=== PATIENT | male | born 1965 | race Caucasian/White ===

== ENCOUNTER → 2020-07-10 09:30 | Outpatient (BNVA) | payer OTHER, SELFPAY | PROVIDERS: Visit Provider Surgery | DX: Z01.812 Encounter for preprocedural laboratory examination (principal); Z20.822 Contact with and (suspected) exposure to COVID-19 | CPT/HCPCS: 87635 ==

== ENCOUNTER 2020-07-13 06:58 | Day surgery (SDC) | payer OTHER, SELFPAY ==
[2020-07-10 14:34] VITALS: BMI 36.3
--- NOTE | 2020-07-13 07:10 | ANES.PREANE2 ---
Pre-Anesthetic Assessment Pre-Anesthetic Assessment: Height/Weight: Height 1.8 m Weight 118.388 kg Preop Diagnosis: Screening Proposed Procedure: Operation Date: 07/13/20 08:15 Proposed Procedures p [id number] z12.11(Not Applicable) - Donnell Pinedo MD Familial anesthetic complications: No history ofanesthesia, no family trouble Was Beta Chidi taken within 24 hours: Yes Was Clonidine taken within 24 hours: N/A Last intake: NPO > 8 hrs Social: Social History: No alcohol and No tobacco Exam: Pre-Anes Outpt Exam: alert, oriented x 3, clear to auscultation bilaterally and regular rate & rhythm Airway: Cervical ROM: WNL MP: 3 Dentition: Full CV/HEM: CV/HEM: HTN Metabolic: Metabolic: DM Anesthetic Plan: ASA status: 3 Anesthesia: MAC Risk of > 500 ml blood loss (7ml/kg in children): No PFSH Anesthesia PFSH: Medical History Benign essential HTN Diabetes mellitus with hyperglycemia, without long-term current use of insulin Gout Surgical History No history of previous surgery Family History Other Diabetes Hypertension Denies family history of Dementia Anesthesia complication Bleeding disorder Lung disease Cancer Stroke Social History Smoking and tobacco status: never smoked Second hand smoke exposure: No Smoking risk assessment/counseling performed?: No Alcohol intake: former Desire information about alcohol rehabilitation?: No Counseling given: No Desire information about substance/drug rehabilitation?: No Counseling given: No Adopted: No Caregiver/support person: No Lives independently: Yes Household members: spouse Housing: Manufactured/Mobile home Marital status: Number of children: 2 service: No Current occupational status: employed Pets and animals: No Current gender identity: Male Data Anesthesia Cardiac Studies: No Data to Display
--- NOTE | 2020-07-13 07:12 | W.PM.OPSUD ---
Surgery/Procedure H&P Update DATE OF PROCEDURE: July 13, 2020 DATE H&P PERFORMED: 07/10/20 H&P UPDATE INFORMATION: I have reviewed H&P completed within last 30 days, I have examined patient prior to procedure and No changes to prior documentation PLANNED PROCEDURE: Operation Date: 07/13/20 08:15 Proposed Procedures p [id number] z12.11(Not Applicable) - Donnell Pinedo MD
[2020-07-13 08:19] VITALS: BP 152/99; PULSE 73; RESP 18; TEMP 36.3; O2SAT 96
[2020-07-13] MEDS: sodium chloride 0.9% 1,000 ML 30 ML IV (08:23)
[2020-07-13 08:52] VITALS: BP 109/82; PULSE 74; RESP 16; TEMP 36.1; O2SAT 93
[2020-07-13 09:03] VITALS: BP 137/88; PULSE 70; RESP 16; O2SAT 95
--- NOTE | 2020-07-13 15:42 | ANE.PACU2 ---
Inpatient post-anesthesia follow up: Airway intact: Yes Vital signs: Temperature 97 F Pulse Rate 70 Respiratory Rate 16 Blood Pressure 137/88 Pulse Oximetry 95 Oxygen Delivery Me thod Room Air Oxygen Flow Rate Fraction of Inspir ed Oxygen Hydration adequate: Yes Nausea and vomiting: No Pain level: 1 Mental status: Baseline
== END 2020-07-13 09:30 | disposition home or self-care (01) ==
PROVIDERS: Visit Provider Surgery
PROC: 0DJD8ZZ Inspection of Lower Intestinal Tract, Via Natural or Artificial Opening Endoscopic (ICD-10-PCS; CPT 45378; principal; 2020-07-13 08:15)
DX: Z12.11 Encounter for screening for malignant neoplasm of colon (principal); D12.4 Benign neoplasm of descending colon; K57.30 Diverticulosis of large intestine without perforation or abscess without bleeding; K64.8 Other hemorrhoids; I10 Essential (primary) hypertension; E11.9 Type 2 diabetes mellitus without complications; Z79.82 Long term (current) use of aspirin
CPT/HCPCS: 45380; 88305; 96360; J7030

== ENCOUNTER 2020-07-16 11:32 | Day surgery (SDC) | payer OTHER, SELFPAY ==
[2020-07-15 14:13] VITALS: BMI 36.3
[2020-07-16 11:50] VITALS: BP 139/94; PULSE 71; RESP 18; TEMP 36.7; O2SAT 96
--- NOTE | 2020-07-16 12:13 | W.PM.OPSUD ---
Surgery/Procedure H&P Update DATE OF PROCEDURE: July 16, 2020 DATE H&P PERFORMED: 07/10/20 H&P UPDATE INFORMATION: I have reviewed H&P completed within last 30 days, I have examined patient prior to procedure and No changes to prior documentation PREOP DIAGNOSIS: Umbilical hernia PLANNED PROCEDURE: Operation Date: 07/16/20 13:10 Proposed Procedures p Umbilical Hernia Repair(Not Applicable) - Donnell Pinedo MD
--- NOTE | 2020-07-16 12:28 | ANES.PREANE2 ---
Pre-Anesthetic Assessment Pre-Anesthetic Assessment: Height/Weight: Height 1.8 m Weight 118.388 kg Temp Pulse Resp BP Pulse Ox 98.0 F 71 18 139/94 96 07/16/20 11:50 07/16/20 11:50 07/16/20 11:50 07/16/20 11:50 07/16/20 11:50 Preop Diagnosis: Rectal cancer Proposed Procedure: Operation Date: 07/16/20 13:10 Proposed Procedures p Umbilical Hernia Repair(Not Applicable) - Donnell Pinedo MD Familial anesthetic complications: None Was Beta Chidi taken within 24 hours: N/A Was Clonidine taken within 24 hours: N/A Last intake: Intake Last Liquid Date 07/15/20 Last Liquid Time 21:30 Last Solid Date 07/15/20 Last Solid Time 21:30 Social: Social History: No alcohol and No tobacco Exam: Pre-Anes Outpt Exam: alert, oriented x 3, clear to auscultation bilaterally and regular rate & rhythm Airway: Cervical ROM: WNL MP: 3 Dentition: Full CV/HEM: CV/HEM: HTN Metabolic: Metabolic: DM Anesthetic Plan: ASA status: 3 Anesthesia: General Risk of > 500 ml blood loss (7ml/kg in children): No PFSH Anesthesia PFSH: Medical History Benign essential HTN Diabetes mellitus with hyperglycemia, without long-term current use of insulin Gout Surgical History (Updated 07/13/20 @ 08:51 by Donnell Pinedo MD) Status post colonoscopy (07/13/20) Family History Other Diabetes Hypertension Denies family history of Dementia Anesthesia complication Bleeding disorder Lung disease Cancer Stroke Social History Smoking and tobacco status: never smoked Second hand smoke exposure: No Smoking risk assessment/counseling performed?: No Alcohol intake: former Desire information about alcohol rehabilitation?: No Counseling given: No Desire information about substance/drug rehabilitation?: No Counseling given: No Adopted: No Caregiver/support person: No Lives independently: Yes Household members: spouse Housing: Manufactured/Mobile home Marital status: Number of children: 2 service: No Current occupational status: employed Pets and animals: No Current gender identity: Male Data Anesthesia Cardiac Studies: No Data to Display
[2020-07-16] MEDS: sodium chloride 0.9% 1,000 ML 30 ML IV (12:40)
[2020-07-16 14:11] VITALS: BP 139/105; PULSE 82; RESP 12; TEMP 36.1; O2SAT 91
[2020-07-16 14:15] VITALS: BP 146/116; PULSE 74; RESP 19; O2SAT 91
[2020-07-16 14:20] VITALS: BP 119/84; PULSE 75; RESP 16; O2SAT 94
[2020-07-16 14:25] VITALS: BP 122/85; PULSE 76; RESP 16; TEMP 36.4; O2SAT 94
[2020-07-16] MEDS: HYDROcodone-acetaminophen 5-325 mg Tablet 1 TAB PO (14:43)
--- NOTE | 2020-07-16 15:36 | P.OP_ITS ---
Operative Report Date of procedure: July 16, 2020 Pre-op Diagnosis: Symptomatic incarcerated umbilical hernia Post-op Diagnosis: 2 cm incarcerated umbilical hernia containing omentum Procedure Done: Open primary repair of umbilical hernia Pathology: none sent Surgeon: Donnell Pinedo Anesthesia: General Condition: stable Disposition: PACU Procedure: The patient was taken to the operating room and intubated under general anesthesia after IV antibiotic had been administered. The abdomen was prepped and draped in a sterile manner. A 2 cm infraumbilical curvilinear incision was made using a 15 blade, a hernial sac dissected out using electrocau kari and dissection with hemostats. The hernial sac was opened and omentum was reduced into the peritoneal cavity. Interrupted sutures using 0 Vicryl was used to close the hernial defect without any tension. The subcutaneous tissue was approximated using 3-0 Vicryl and skin was closed using running subcuticular 4-0 Monocryl sutures. Dermabond was then applied and 10 mL of 0.5% Marcaine was in filtrated around the incision. A 2 x 2 gauze was then placed within the umbilicus and sterile dressings are applied. The patient was stable throughout the procedure, extubated and transferred to recovery room.
--- NOTE | 2020-07-16 18:03 | ANE.PACU2 ---
Inpatient post-anesthesia follow up: Airway intact: Yes Vital signs: Temperature 97.6 F Pulse Rate 76 Respiratory Rate 16 Blood Pressure 122/85 Pulse Oximetry 94 Oxygen Delivery Me thod Room Air Oxygen Flow Rate 8 Fraction of Inspir ed Oxygen Hydration adequate: Yes Nausea and vomiting: No Pain level: 2 Mental status: Baseline
== END 2020-07-16 14:58 | disposition home or self-care (01) ==
PROVIDERS: Visit Provider Surgery
PROC: (CPT 49587; principal; 2020-07-16 13:00)
DX: K42.0 Umbilical hernia with obstruction, without gangrene (principal); I10 Essential (primary) hypertension; E11.9 Type 2 diabetes mellitus without complications; E11.65 Type 2 diabetes mellitus with hyperglycemia; Z79.82 Long term (current) use of aspirin
CPT/HCPCS: 49587; 96365; J0690; J1100; J2250; J2405; J2704; J2710; J3010; J3490; J7030

== ENCOUNTER → 2020-10-26 11:01 | Outpatient (BNVA) | payer OTHER, SELFPAY | PROVIDERS: PCP Nurse Practitioner; Visit Provider Nurse Practitioner | DX: Z20.822 Contact with and (suspected) exposure to COVID-19 (principal); E11.65 Type 2 diabetes mellitus with hyperglycemia; I10 Essential (primary) hypertension | CPT/HCPCS: 80053; 80061; 83036; 87635 ==

== ENCOUNTER → 2021-01-20 08:22 | Outpatient (BNVA) | payer OTHER, SELFPAY | PROVIDERS: PCP Nurse Practitioner; Visit Provider Nurse Practitioner | DX: E11.65 Type 2 diabetes mellitus with hyperglycemia (principal); I10 Essential (primary) hypertension | CPT/HCPCS: 80053; 80061; 82043; 83036 ==

== ENCOUNTER → 2021-04-27 08:43 | Outpatient (BNVA) | payer OTHER, SELFPAY | PROVIDERS: PCP Nurse Practitioner; Visit Provider Nurse Practitioner | DX: E11.65 Type 2 diabetes mellitus with hyperglycemia (principal); M10.9 Gout, unspecified; I10 Essential (primary) hypertension | CPT/HCPCS: 80053; 80061; 81000; 82043; 83036; 84550 ==

== ENCOUNTER → 2021-07-20 08:52 | Outpatient (BNVA) | payer OTHER, SELFPAY | PROVIDERS: PCP Nurse Practitioner; Visit Provider Nurse Practitioner | DX: M10.9 Gout, unspecified (principal); E11.65 Type 2 diabetes mellitus with hyperglycemia; I10 Essential (primary) hypertension; R22.2 Localized swelling, mass and lump, trunk | CPT/HCPCS: 80053; 81000; 83036; 85025 ==

== ENCOUNTER 2021-10-11 06:42 | Outpatient (CLI) | payer OTHER, SELFPAY ==
--- NOTE | 2021-10-11 07:00 | US_ITS ---
WS: [id number] ULTRASOUND SOFT TISSUES superior RIGHT back. HISTORY: R22.2 - Localized swelling, mass and lump, trunk COMPARISON: None available. TECHNIQUE: 2-D and color Doppler imaging is submitted. There is a homogeneous ovoid hypoechoic mass along the RIGHT upper back in the area of interest measu ring 6.4 x 6.6 x 2.3 cm. No increased vascularity. This is a homogeneous mass with no adjacent fluid interspersed between the soft tissues of the back. US/US soft tissue/extremity [id number] IMPRESSION: Hypoechoic mass corresponds to the palpable area in the RIGHT back. Most likely this is a benign lipoma based upon its imaging characteristics.
== END 2021-10-11 06:43 | disposition home or self-care (01) ==
PROVIDERS: PCP Nurse Practitioner; Visit Provider Nurse Practitioner
DX: R22.2 Localized swelling, mass and lump, trunk (principal)
CPT/HCPCS: 76882

== ENCOUNTER → 2021-10-21 08:09 | Outpatient (BNVA) | payer OTHER, SELFPAY | PROVIDERS: PCP Nurse Practitioner; Visit Provider Nurse Practitioner | DX: E11.65 Type 2 diabetes mellitus with hyperglycemia (principal); I10 Essential (primary) hypertension | CPT/HCPCS: 80053; 80061; 83036; 85025 ==

== ENCOUNTER 2021-11-29 05:54 | Day surgery (SDC) | payer OTHER, SELFPAY ==
[2021-11-26 13:37] VITALS: BMI 34.8
[2021-11-29] VITALS (7 sets, daily range): BP systolic 116–132; BP diastolic 75–90; PULSE 62–75; RESP 16–18; TEMP 36.1–36.7; O2SAT 92–97
[2021-11-29 06:31] LABS: Glucose Point of Care 133 mg/dL (70-110)
[2021-11-29] MEDS: sodium chloride 0.9% 1,000 ML 30 ML IV (06:35)
--- NOTE | 2021-11-29 06:54 | W.PM.OPSUD ---
Surgery/Procedure H&P Update DATE OF PROCEDURE: November 29, 2021 DATE H&P PERFORMED: 11/09/21 PREOP DIAGNOSIS: subcutaneous mass of back PLANNED PROCEDURE: Operation Date: 11/29/21 07:00 Proposed Procedures p Excision of subq back mass 53027,R22.2(Not Applicable) - Vladimir Izaguirre DO
[2021-11-29] MEDS: ceFAZolin 2,000 MG in sodium chloride 0.9% (plus) 50 ML 100 MG IV (06:59)
[2021-11-29] MEDS: neomycin-poly-bacitracin oint 28 gm 1 APPLIC TOPICAL (07:38)
--- NOTE | 2021-11-29 07:42 | PM.OP ---
Operative Report Date of procedure: November 29, 2021 Pre-op diagnosis: Preop Diagnosis subcutaneous mass of back Post-op diagnosis: same Procedure done: Excision of subcutaneous mass of back Specimens removed/disposition: Subcutaneous mass of back Surgeon: Dr. Vladimir Izaguirre DO Anesthesia: Other (LMA) Estimated blood loss (mL): 5 Complications: None apparent Brief History: This is a pleasant 56-year-old gentleman who came in with an enlarging and painful subcutaneous mass of his back. Excision was indicated. Procedure: The area was inspected prepped and draped in the usual sterile fashion. 2% lidocaine with epinephrine was used to anesthetize the area over the subcutaneous mass of the back. A 15 blade scalpel then used to make a 5 cm transverse incision on the back. Bovie cautery was used to dissect down through the subcutaneous tissues and fascia to a lobulated yellow mass consistent with a lipoma. Alveolar tissue was broken and cauterized. A 7 cm lobulated mass was removed and passed off. Hemostasis was achieved with electrocautery. Dermis was approximated with 3-0 Vicryl in an interrupted fashion. Skin was closed with 3-0 nylon in a vertical mattress and simple running fashioN. Sterile dressing was applied. Patient tolerated the procedure well.
--- NOTE | 2021-11-29 07:50 | ANES.PREANE2 ---
Pre-Anesthetic Assessment Height/Weight: Height 1.8 m Weight 113.398 kg Temp Pulse Resp BP Pulse Ox O2 Del Method 97.0 F L 62 18 132/90 97 11/29/21 06:12 11/29/21 06:12 11/29/21 06:12 11/29/21 06:12 11/29/21 06:12 11/29/21 06:21 Preop Diagnosis: subcutaneous mass of back Operation Date: 11/29/21 07:00 Proposed Procedures p Excision of subq back mass 06152,R22.2(Not Applicable) - Vladimir Izaguirre DO Familial anesthetic complications: none Was Beta Chidi taken within 24 hours: Yes Was Clonidine taken within 24 hours: N/A Last intake: Intake Last Liquid Date 11/28/21 Last Liquid Time 20:00 Last Solid Date 11/28/21 Last Solid Time 20:00 Social No alcohol and No tobacco Exam alert, oriented x 3, clear to auscultation bilaterally and regular rate & rhythm Airway Submandibular: within normal limits Cervical ROM: within normal limits Mallampati: Class II Dentition: full CV/HEM Hypertension Metabolic Diabetes Mellitus and Morbid Obesity Anesthetic Plan ASA status: 2 Anesthesia: General Medications/Allergies Home Medications Medication Instructions Recorded Confirmed Last Taken Type aspirin 81 mg tablet,delayed 81 mg PO DAILY 06/30/20 11/29/21 11/26/21 History release (Adult Low Dose Aspirin) plant stanol ness 450 mg tablet 450 mg PO DAILY 07/10/20 11/29/21 11/27/21 History (Cholest Off) allopurinol 300 mg tablet 300 mg PO DAILY #30 tabs 10/20/21 11/29/21 11/28/21 Rx dapagliflozin 10 mg tablet 10 mg PO QAM #30 tabs 10/20/21 11/29/21 11/27/21 Rx (Farxiga) liraglutide 0.6 mg/0.1 mL (18 mg/3 1.2 mg (0.2 mL) SUBCUT Q24H #9 mL 10/20/21 11/29/21 11/27/21 Rx mL) subcutaneous pen injector (Victoza 3-Jamir) metoprolol succinate 25 mg 25 mg PO DAILY #30 tabs 10/20/21 11/29/21 11/29/21 05:00 Rx tablet,extended release 24 hr pen needle, diabetic 33 gauge x #100 ea 10/20/21 11/09/21 Unknown Rx 32 valsartan 160 mg tablet 160 mg PO DAILY #30 tabs 10/20/21 11/29/21 11/27/21 Rx naltrexone 8 mg-bupropion 90 mg 2 tab PO Q12H #120 tabs 11/02/21 11/29/21 11/27/21 Rx tablet,extended release (Contrave) rosuvastatin 20 mg tablet (Crestor) 20 mg PO DAILY #30 tabs 11/02/21 11/29/21 11/27/21 Rx hydrocodone 7.5 mg-acetaminophen 1 tab PO TID PRN pain #10 tabs 11/29/21 Unknown Rx 325 mg tablet Allergies Allergy/AdvReac Type Severity Reaction Status Date / Time metformin AdvReac Severe ADR-Diarrhe Verified 11/09/21 09:07 a Current Medications Generic Name Dose Route Start Last Admin Trade Name Freq PRN Reason Stop Dose Admin Sodium Chloride 1,000 mls @ 30 mls/hr 11/29/21 06:00 11/29/21 06:35 Sodium Chloride 0.9% IV 11/30/21 05:59 30 mls/hr .Q24H HERON Administration PFSH Anesthesia Medical History Benign essential HTN Diabetes mellitus with hyperglycemia, without long-term current use of insulin Gout Hyperlipidemia, mixed Obesity (BMI 30-39.9) Surgical History History of umbilical hernia repair (07/16/20) Status post colonoscopy (07/13/20) Family History Other Diabetes Hypertension Denies family history of Dementia Anesthesia complication Bleeding disorder Lung disease Cancer Stroke Social History Smoking and tobacco status: never smoked Second hand smoke exposure: No Smoking risk assessment/counseling performed?: No Alcohol intake: former Desire information about alcohol rehabilitation?: No Counseling given: No Desire information about substance/drug rehabilitation?: No Counseling given: No Adopted: No Caregiver/support person: No Lives independently: Yes Household members: spouse Housing: Manufactured/Mobile home Marital status: Number of children: 2 service: No Current occupational status: employed Pets and animals: No Current gender identity: Male Data Anesthesia Cardiac Studies: No Data to Display
--- NOTE | 2021-11-29 15:53 | ANE.PACU2 ---
Inpatient post-anesthesia follow up: Airway intact: Yes Vital signs: Temperature 97.4 F Pulse Rate 72 Respiratory Rate 18 Blood Pressure 122/79 Pulse Oximetry 93 Oxygen Delivery Me thod Room Air Oxygen Flow Rate 6 Fraction of Inspir ed Oxygen Hydration adequate: Yes Nausea and vomiting: No Pain level: 1 Mental status: Baseline
== END 2021-11-29 09:50 | disposition home or self-care (01) ==
PROVIDERS: PCP Nurse Practitioner; Visit Provider Surgery
PROC: (CPT 11406; principal; 2021-11-29 07:00)
DX: D17.1 Benign lipomatous neoplasm of skin and subcutaneous tissue of trunk (principal); I10 Essential (primary) hypertension; E11.9 Type 2 diabetes mellitus without complications; Z68.34 Body mass index [BMI] 34.0-34.9, adult; E66.01 Morbid (severe) obesity due to excess calories; Z79.82 Long term (current) use of aspirin; E78.2 Mixed hyperlipidemia
CPT/HCPCS: 11406; 12032; 36416; 82962; 88304; J1100; J1885; J2405; J2704; J3010; J7030

== ENCOUNTER → 2021-12-29 09:10 | Outpatient (BNVA) | payer OTHER, SELFPAY | PROVIDERS: PCP Nurse Practitioner; Visit Provider Nurse Practitioner | DX: E11.65 Type 2 diabetes mellitus with hyperglycemia (principal); I10 Essential (primary) hypertension; E66.9 Obesity, unspecified; M10.9 Gout, unspecified; E78.2 Mixed hyperlipidemia | CPT/HCPCS: 80053; 81000; 83036 ==

== ENCOUNTER → 2022-04-15 08:43 | Outpatient (BNVA) | payer OTHER, SELFPAY | PROVIDERS: PCP Nurse Practitioner; Visit Provider Nurse Practitioner | DX: E11.65 Type 2 diabetes mellitus with hyperglycemia (principal) | CPT/HCPCS: 80053; 80061; 81000; 82043; 83036 ==

== ENCOUNTER → 2022-07-15 09:22 | Outpatient (BNVA) | payer OTHER, SELFPAY | PROVIDERS: PCP Nurse Practitioner; Visit Provider Nurse Practitioner | DX: E11.65 Type 2 diabetes mellitus with hyperglycemia (principal); Z12.5 Encounter for screening for malignant neoplasm of prostate | CPT/HCPCS: 80053; 83036; G0103 ==

== ENCOUNTER → 2022-10-07 08:37 | Outpatient (BNVA) | payer OTHER, SELFPAY | PROVIDERS: PCP Nurse Practitioner; Visit Provider Nurse Practitioner | DX: E11.65 Type 2 diabetes mellitus with hyperglycemia (principal) | CPT/HCPCS: 80053; 81000; 82043; 83036 ==

== ENCOUNTER → 2023-01-05 09:50 | Outpatient (BNVA) | payer OTHER, SELFPAY | PROVIDERS: PCP Nurse Practitioner; Visit Provider Nurse Practitioner | DX: E11.65 Type 2 diabetes mellitus with hyperglycemia (principal); M10.9 Gout, unspecified | CPT/HCPCS: 80053; 80061; 81000; 83036; 84550 ==

== ENCOUNTER 2023-01-11 15:23 | Outpatient (CLI) | payer OTHER, SELFPAY ==
--- NOTE | 2023-01-11 15:31 | MR_ITS ---
WS: [id number] MRI RIGHT SHOULDER NONCONTRAST TECHNIQUE: Sagittal T2, coronal T1, T2 and proton density imaging. Axial gradient PDE imaging. CLINICAL INFORMATION: R ROTATOR CUFF SYNDROME COMPARISON: None. FINDINGS: Advanced arthritis AC joint with edema and marked narrowing of the subacromial space. Slight subacrom ial spurring. Hill-Sachs deformity involving the humeral head. Advanced degenerative narrowing of the glenohumeral articulation. High-grade tear of the supraspinatus with retraction to the level of the glenohumeral joint. A few intact fibers anteriorly. Rotator cuff is otherwise intact. Chronic thinning of the subscapularis. Biceps tendon appears intact within the bicipital groove. Tendinopathy with increased signal intra-articular biceps tendon. Degen erative fraying of the glenoid labrum. IMPRESSION: 1. Advanced degenerative arthritis AC joint with narrowing of the subacromial space. 2. High-grade tear of the supraspinatus with retraction to the level of the glenohumeral joint. A fe w intact fibers anteriorly. 3. Rotator cuff is otherwise intact. 4. Biceps tendon intact within the bicipital groove. 5. Hill-Sachs deformity of the humeral head recommend correlation for recurrent dislocation. 6. Advanced degenerative narrowing of the glenohumeral articulation with hypertrophic changes. 7. Biceps tendon appears intact in this bicipital groove. 8. Tendinopathy intra-articular biceps tendon.
== END 2023-01-11 15:24 | disposition home or self-care (01) ==
PROVIDERS: PCP Nurse Practitioner; Visit Provider Nurse Practitioner
DX: M75.101 Unspecified rotator cuff tear or rupture of right shoulder, not specified as traumatic (principal); M21.821 Other specified acquired deformities of right upper arm; M19.011 Primary osteoarthritis, right shoulder; W03.XXXA Other fall on same level due to collision with another person, initial encounter; Y93.89 Activity, other specified; Y92.69 Other specified industrial and construction area as the place of occurrence of the external cause
CPT/HCPCS: 73221

== ENCOUNTER → 2023-02-08 11:03 | Outpatient (BNVA) | payer OTHER, SELFPAY | PROVIDERS: PCP Nurse Practitioner; Visit Provider Family Medicine | DX: Z01.818 Encounter for other preprocedural examination (principal) | CPT/HCPCS: 80048; 81003; 85025 ==

== ENCOUNTER → 2023-03-21 13:50 | Outpatient (BNVA) | payer OTHER, SELFPAY | PROVIDERS: PCP Nurse Practitioner; Visit Provider Nurse Practitioner | DX: E11.65 Type 2 diabetes mellitus with hyperglycemia (principal) | CPT/HCPCS: 80053; 81000; 83036 ==

== ENCOUNTER 2023-04-19 06:00 | Outpatient (RCR) | payer OTHER, SELFPAY | END 2023-05-04 23:59 | disposition home or self-care (01) | LOC: TPT 06:00 | PROVIDERS: PCP Nurse Practitioner; Visit Provider Orthopaedic Surgery Adult Reconstructive Orthopaedic Surgery | DX: M25.511 Pain in right shoulder (principal); G89.29 Other chronic pain | CPT/HCPCS: 97110; 97140; 97162 ==

== ENCOUNTER 2023-05-05 06:00 | Outpatient (RCR) | payer OTHER, SELFPAY | END 2023-06-04 23:59 | disposition home or self-care (01) | LOC: TPT 06:00 | PROVIDERS: PCP Nurse Practitioner; Visit Provider Orthopaedic Surgery Adult Reconstructive Orthopaedic Surgery | DX: M25.511 Pain in right shoulder (principal); G89.29 Other chronic pain | CPT/HCPCS: 97110; 97140 ==

== ENCOUNTER → 2023-06-12 08:40 | Outpatient (BNVA) | payer OTHER, SELFPAY | PROVIDERS: PCP Nurse Practitioner; Visit Provider Nurse Practitioner | DX: E11.65 Type 2 diabetes mellitus with hyperglycemia | CPT/HCPCS: 80053; 80061; 81000; 82043; 83036 ==

== ENCOUNTER → 2023-08-28 09:10 | Outpatient (BNVA) | payer OTHER, SELFPAY | PROVIDERS: PCP Nurse Practitioner; Visit Provider Nurse Practitioner | DX: E11.65 Type 2 diabetes mellitus with hyperglycemia; Z12.5 Encounter for screening for malignant neoplasm of prostate | CPT/HCPCS: 80053; 80061; 83036; G0103 ==

== ENCOUNTER → 2023-11-13 08:44 | Outpatient (BNVA) | payer OTHER, MEDICAID, SELFPAY | PROVIDERS: PCP Nurse Practitioner; Visit Provider Nurse Practitioner | DX: E11.9 Type 2 diabetes mellitus without complications (principal) | CPT/HCPCS: 80053; 81000; 83036 ==

== ENCOUNTER → 2024-01-29 09:39 | Outpatient (BNVA) | payer BC, MEDICAID, SELFPAY | PROVIDERS: PCP Nurse Practitioner; Visit Provider Nurse Practitioner | DX: E11.9 Type 2 diabetes mellitus without complications | CPT/HCPCS: 80053; 80061; 81000; 83036 ==

== ENCOUNTER → 2024-04-15 09:24 | Outpatient (BNVA) | payer BC, MEDICAID, SELFPAY | PROVIDERS: PCP Nurse Practitioner; Visit Provider Nurse Practitioner | DX: E11.9 Type 2 diabetes mellitus without complications (principal) | CPT/HCPCS: 80053; 80061; 81000; 83036 ==

== ENCOUNTER → 2024-07-08 08:59 | Outpatient (BNVA) | payer BC, MEDICAID, SELFPAY | PROVIDERS: PCP Nurse Practitioner; Visit Provider Nurse Practitioner | DX: E11.65 Type 2 diabetes mellitus with hyperglycemia (principal); I10 Essential (primary) hypertension; E78.2 Mixed hyperlipidemia; E55.9 Vitamin D deficiency, unspecified | CPT/HCPCS: 80053; 81000; 82043; 82306; 83036 ==

== ENCOUNTER → 2024-09-30 09:45 | Outpatient (BNVA) | payer BC, MEDICAID, SELFPAY | PROVIDERS: PCP Nurse Practitioner; Visit Provider Nurse Practitioner | DX: E11.9 Type 2 diabetes mellitus without complications (principal); Z12.5 Encounter for screening for malignant neoplasm of prostate | CPT/HCPCS: 80053; 81000; 83036; G0103 ==

== ENCOUNTER → 2024-12-23 10:28 | Outpatient (BNVA) | payer BC, MEDICAID, SELFPAY | PROVIDERS: PCP Nurse Practitioner; Visit Provider Nurse Practitioner | DX: I10 Essential (primary) hypertension (principal); E11.65 Type 2 diabetes mellitus with hyperglycemia; E55.9 Vitamin D deficiency, unspecified; M10.9 Gout, unspecified | CPT/HCPCS: 81000 ==

== ENCOUNTER → 2024-12-26 09:20 | Outpatient (BNVA) | payer BC, MEDICAID, SELFPAY | PROVIDERS: PCP Nurse Practitioner; Visit Provider Nurse Practitioner | DX: I10 Essential (primary) hypertension (principal); E11.65 Type 2 diabetes mellitus with hyperglycemia; E55.9 Vitamin D deficiency, unspecified; M10.9 Gout, unspecified | CPT/HCPCS: 80053; 80061; 82306; 83036; 84550 ==